=== PATIENT | male | born 1995 | race Caucasian/White ===

== ENCOUNTER 2017-01-06 00:29 | Emergency (ER) | payer OTHER ==
[~2017-01-06] VITALS: Ht 187.9 cm; Wt 136.1 kg
[~2017-01-06 00:29] MED LIST: AMOXICILLIN500 M2 PO; AMOXICILLIN500 MG PO; ANAPROX DS550 MG PO; CLINDAMYCIN HC300 MG PO; CYCLOBENZAPRINE10 MG PO; LOMOTIL 0.025 M1 TAB PO; MOTRIN400 MG PO; MOTRIN800 MG PO; NAPROSYN500 MG PO; NKHM; NORCO 325 MG-51 TAB PO; PEN-VK500 MG PO; PERIDEX 480 ML480 ML PO; PHENERGAN25 M1 PO; PREDNISONE10 MG PO; PREDNISONE20 M1 PO; ROBITUSSIN AC 10 MG/ PO; ULTRAM50 MG PO; ZANTAC150 MG PO; ZITHROMAX Z PA250 MG PO; ZYRTEC10 MG PO
[2017-01-06 00:36] VITALS: BP 152/96
[2017-01-06] MEDS ORDERED: KETOROLAC10 MG PO (03:35)
[2017-01-06] MEDS ORDERED: AMOXICILLIN500 M2 PO (03:35)
== END 2017-01-06 03:52 | disposition home or self-care (01) ==
LOC: ED 00:29
DX: J02.9 Acute pharyngitis, unspecified (principal); R13.10 Dysphagia, unspecified

== ENCOUNTER 2017-01-10 22:42 | Emergency (ER) | payer OTHER ==
[~2017-01-10] VITALS: Ht 190.5 cm; Wt 137.4 kg
[~2017-01-10 22:42] MED LIST changes: +KETOROLAC10 MG PO
[2017-01-10 22:51] VITALS: BP 164/89
[2017-01-10 23:37] LABS: BASO % 0.3 % (0.0-1.0); EOS # 0.1 10*3/uL (0.0-0.4); HEMATOCRIT 44.9 % (42.0-52.0); HEMOGLOBIN 15.7 g/dl (14.0-18.0); IG # 0.1 10*3/uL (0.0-0.1); LYMPH # 2.8 10*3/uL (1.3-4.4); LYMPH % 29.1 % (27.0-41.0); MEAN CELL VOLUME 86.8 fl (80.0-94.0); MEAN CORPUSCULAR HGB 30.4 pg (27.0-31.0); MEAN PLATELET VOLUME 10.4 fl (9.6-12.3); MONO # 0.8 10*3/uL (0.1-1.0); MONO % 7.8 % (3.0-9.0); NEUT # 5.9 10*3/uL (2.3-7.9); NEUT % 61.3 % (47.0-73.0); PLATELET COUNT AUTOMATED 291 10*3/uL (130-400); RED BLOOD COUNT 5.17 10*6/uL (4.50-5.90); RED CELL DISTRI WIDTH 11.8 % (0-14.5); WHITE BLOOD COUNT 9.6 10*3/uL (4.8-10.8)
[2017-01-10 23:53] LABS: ALBUMIN 4.1 gm/dl (3.1-4.5); ALKALINE PHOSPHATASE 98 U/L (45-117); BILIRUBIN, TOTAL 0.4 mg/dl (0.2-1.0); BUN 7 mg/dl (7-24); CARBON DIOXIDE 21 mmol/L (21-32); CHLORIDE 106 mmol/L (98-107); EST GLOM FILT AFRICAN AMERICAN > 60 ml/min; GLUCOSE 118 mg/dL (65-99); POTASSIUM 3.3 mmol/L (3.5-5.1); SGOT/AST 28 IU/L (3-35); SGPT/ALT 81 U/L (12-78); SODIUM 141 mmol/L (136-145); TOTAL PROTEIN 8.1 gm/dL (6.4-8.2)
[2017-01-11] MEDS ORDERED: PROAIR HFA8.5 GM INH (00:20)
[2017-01-11] MEDS ORDERED: PREDNISONE10 MG PO (00:20)
[2017-01-11 01:35] LABS: LA>2 REFLEX 2 HR DRAW NOW
== END 2017-01-11 01:10 | disposition home or self-care (01) ==
LOC: ED 22:42
PROVIDERS: Nurse Practitioner Family
DX: J40 Bronchitis, not specified as acute or chronic (principal); Z79.899 Other long term (current) drug therapy

== ENCOUNTER 2017-10-14 18:11 | Emergency (ER) | payer OTHER ==
[~2017-10-14] VITALS: Ht 180.3 cm; Wt 139.3 kg
[~2017-10-14 18:11] MED LIST changes: +PROAIR HFA8.5 GM INH
[2017-10-14] MEDS ORDERED: MEDROL DOSEPAK4 MG PO (19:58)
[2017-10-14] MEDS ORDERED: ZITHROMAX250 MG PO (19:58)
[2017-10-14 20:12] VITALS: BP 128/79
== END 2017-10-14 20:13 | disposition home or self-care (01) ==
LOC: ED 18:11
DX: J40 Bronchitis, not specified as acute or chronic (principal); Z79.899 Other long term (current) drug therapy

== ENCOUNTER 2018-08-22 | Emergency (ER) | payer OTHER ==
[~2018-08-22] MED LIST changes: +MEDROL DOSEPAK4 MG PO; +ZITHROMAX250 MG PO
[2018-08-22 00:01] VITALS: BP 144/84
[2018-08-22] MEDS ORDERED: IBU800 MG PO (00:03)
[2018-08-22] MEDS ORDERED: PREDNISONE50 MG PO (00:03)
[2018-08-22] MEDS ORDERED: CYCLOBENZAPRINE10 MG PO (00:03)
== END 2018-08-22 00:11 | disposition home or self-care (01) ==
LOC: ED
DX: M54.42 Lumbago with sciatica, left side (principal)

== ENCOUNTER 2019-09-27 22:32 | Emergency (ER) | payer MEDICAID ==
[~2019-09-27] VITALS: Ht 182.8 cm; Wt 136.1 kg
[~2019-09-27 22:32] MED LIST changes: +IBU800 MG PO; +PREDNISONE50 MG PO
[2019-09-27 23:52] VITALS: BP 144/80
== END 2019-09-28 | disposition home or self-care (01) ==
LOC: ED 22:32
DX: B34.9 Viral infection, unspecified (principal)

== ENCOUNTER 2019-10-07 13:38 | Emergency (ER) | payer MEDICAID ==
[~2019-10-07] VITALS: Wt 136.1 kg
[2019-10-07 13:41] VITALS: BP 133/56
[2019-10-07] MEDS ORDERED: PREDNISONE20 M1 PO (14:06)
[2019-10-07] MEDS ORDERED: AUGMENTIN 875875 MG PO (14:06)
== END 2019-10-07 14:23 | disposition home or self-care (01) ==
LOC: ED 13:38
DX: J02.9 Acute pharyngitis, unspecified (principal); R21 Rash and other nonspecific skin eruption; Z79.899 Other long term (current) drug therapy

== ENCOUNTER 2020-08-09 18:24 | Emergency (ER) | payer OTHER ==
[~2020-08-09] VITALS: Ht 182.8 cm; Wt 135.6 kg
[~2020-08-09 18:24] MED LIST changes: +AUGMENTIN 875875 MG PO
[2020-08-09 18:33] VITALS: BP 143/74
[2020-08-09 19:05] LABS: BASO % 0.2 % (0.0-1.0); EOS # 0.1 10*3/uL (0.0-0.4); EOS % 1.2 % (1.0-4.0); LYMPH # 1.9 10*3/uL (1.3-4.4); LYMPH % 16.7 % (27.0-41.0); MEAN CORPUSCULAR HGB CONC 34.5 g/dl (33.0-37.0); MONO % 8.7 % (3.0-9.0); NEUT # 8.4 10*3/uL (2.3-7.9); NEUT % 72.8 % (47.0-73.0); PLATELET COUNT AUTOMATED 263 10*3/uL (130-400); WHITE BLOOD COUNT 11.5 10*3/uL (4.8-10.8)
[2020-08-09 19:20] LABS: ALBUMIN 4.2 gm/dl (3.1-4.5); ALKALINE PHOSPHATASE 97 U/L (45-117); BUN 11 mg/dl (7-24); CHLORIDE 110 mmol/L (98-107); CREATININE 0.96 mg/dL (0.70-1.30); POTASSIUM 3.5 mmol/L (3.5-5.1); SGOT/AST 44 IU/L (3-35); SGPT/ALT 106 U/L (12-78); SODIUM 140 mmol/L (136-145); TOTAL PROTEIN 8.3 gm/dL (6.4-8.2)
[2020-08-09] MEDS ORDERED: AMOXICILLIN500 M2 PO (20:27)
== END 2020-08-09 20:20 | disposition home or self-care (01) ==
LOC: ED 18:24
PROVIDERS: Nurse Practitioner Family
DX: J32.9 Chronic sinusitis, unspecified (principal); Z20.822 Contact with and (suspected) exposure to COVID-19

== ENCOUNTER 2020-09-19 19:35 | Emergency (ER) | payer OTHER ==
[~2020-09-19] VITALS: Ht 182.8 cm; Wt 135.6 kg
[2020-09-19 19:45] VITALS: BP 135/67
[2020-09-19 20:56] LABS: BASO % 0.2 % (0.0-1.0); EOS % 0.1 % (1.0-4.0); HEMATOCRIT 46.7 % (42.0-52.0); LYMPH # 1.8 10*3/uL (1.3-4.4); LYMPH % 14.5 % (27.0-41.0); MEAN CELL VOLUME 87.6 fl (80.0-94.0); MEAN CORPUSCULAR HGB 30.2 pg (27.0-31.0); MEAN CORPUSCULAR HGB CONC 34.5 g/dl (33.0-37.0); MEAN PLATELET VOLUME 10.9 fl (9.6-12.3); MONO # 0.7 10*3/uL (0.1-1.0); MONO % 5.9 % (3.0-9.0); NEUT # 9.7 10*3/uL (2.3-7.9); PLATELET COUNT AUTOMATED 333 10*3/uL (130-400); RED BLOOD COUNT 5.33 10*6/uL (4.50-5.90); RED CELL DISTRI WIDTH 11.7 % (0-14.5); WHITE BLOOD COUNT 12.3 10*3/uL (4.8-10.8)
[2020-09-19 21:15] LABS: ALKALINE PHOSPHATASE 94 U/L (45-117); BUN 12 mg/dl (7-24); CHLORIDE 107 mmol/L (98-107); CREATININE 0.91 mg/dL (0.70-1.30); LIPASE 61 U/L (73-393); POTASSIUM 3.7 mmol/L (3.5-5.1); SGOT/AST 41 IU/L (3-35); SGPT/ALT 104 U/L (12-78); SODIUM 139 mmol/L (136-145); TOTAL PROTEIN 8.3 gm/dL (6.4-8.2)
[2020-09-19 21:27] LABS: BILIRUBIN Negative (Negative); BLOOD Negative (Negative); CLARITY Clear (Clear); COLOR Yellow (Yellow); GLUCOSE Negative (Negative); KETONE Trace (Negative); LEUKO ESTERASE Negative (Negative); NITRITE Negative (Negative); SPECIFIC GRAVITY >= 1.030 (1.001-1.030)
[2020-09-19 21:41] LABS: EPITHELIAL CELLS 0-2
[2020-09-19 21:42] LABS: BACTERIA TRACE; MUCOUS 1+
== END 2020-09-19 19:50 | disposition home or self-care (01) ==
LOC: ED 19:35
PROVIDERS: Student in an Organized Health Care Education/Training Program
DX: R19.7 Diarrhea, unspecified (principal); K76.0 Fatty (change of) liver, not elsewhere classified; R74.01 Elevation of levels of liver transaminase levels

== ENCOUNTER 2021-03-24 02:12 | Emergency (ER) | payer OTHER ==
[~2021-03-24] VITALS: Ht 182.8 cm; Wt 139.3 kg
[2021-03-24 02:34] VITALS: BP 156/87
[2021-03-24 02:57] LABS: BASO % 0.4 % (0.0-1.0); EOS # 0.1 10*3/uL (0.0-0.4); EOS % 1.5 % (1.0-4.0); HEMATOCRIT 45.1 % (42.0-52.0); LYMPH # 2.7 10*3/uL (1.3-4.4); LYMPH % 34.3 % (27.0-41.0); MEAN CELL VOLUME 89.5 fl (80.0-94.0); MEAN CORPUSCULAR HGB 30.2 pg (27.0-31.0); MEAN CORPUSCULAR HGB CONC 33.7 g/dl (33.0-37.0); MEAN PLATELET VOLUME 11.1 fl (9.6-12.3); MONO # 0.6 10*3/uL (0.1-1.0); NEUT # 4.5 10*3/uL (2.3-7.9); NEUT % 56.5 % (47.0-73.0); PLATELET COUNT AUTOMATED 290 10*3/uL (130-400); RED BLOOD COUNT 5.04 10*6/uL (4.50-5.90); RED CELL DISTRI WIDTH 11.9 % (0-14.5)
[2021-03-24 03:15] LABS: ALBUMIN 4.1 gm/dl (3.1-4.5); ALKALINE PHOSPHATASE 90 U/L (45-117); BUN 12 mg/dl (7-24); CHLORIDE 109 mmol/L (98-107); CREATININE 0.91 mg/dL (0.70-1.30); POTASSIUM 4.3 mmol/L (3.5-5.1); SGOT/AST 29 IU/L (3-35); SGPT/ALT 91 U/L (12-78); SODIUM 140 mmol/L (136-145)
== END 2021-03-24 03:52 | disposition home or self-care (01) ==
LOC: ED 02:12
PROVIDERS: Internal Medicine
DX: B34.9 Viral infection, unspecified (principal); Z20.822 Contact with and (suspected) exposure to COVID-19

== ENCOUNTER 2021-05-12 19:36 | Emergency (ER) | payer OTHER ==
[2021-05-12 19:49] VITALS: BP 139/84
[2021-05-12] MEDS ORDERED: MOTRIN IB200 M1 PO (19:49)
[2021-05-12] MEDS ORDERED: SEPTDS PO (20:03)
== END 2021-05-12 20:17 | disposition home or self-care (01) ==
LOC: ED 19:36
DX: L05.01 Pilonidal cyst with abscess (principal)

== ENCOUNTER 2021-07-03 17:52 | Emergency (ER) | payer OTHER ==
[~2021-07-03] VITALS: Ht 182.8 cm; Wt 140.6 kg
[~2021-07-03 17:52] MED LIST changes: +MOTRIN IB200 M1 PO; +SEPTDS PO
[2021-07-03 18:08] VITALS: BP 139/95
[2021-07-03] MEDS ORDERED: IBUPROFEN600 MG PO (20:59)
[2021-07-03] MEDS ORDERED: AUGMENTIN 875875 MG PO (20:59)
== END 2021-07-03 21:00 | disposition home or self-care (01) ==
LOC: ED 17:52
DX: J02.9 Acute pharyngitis, unspecified (principal); Z20.822 Contact with and (suspected) exposure to COVID-19

== ENCOUNTER 2022-09-23 22:19 | Emergency (ER) | payer OTHER ==
[~2022-09-23] VITALS: Ht 180.3 cm; Wt 128.8 kg
[~2022-09-23 22:19] MED LIST changes: +IBUPROFEN600 MG PO
[2022-09-23 23:17] VITALS: BP 141/76
[2022-09-24] MEDS ORDERED: PROVENTIL HFA6.7 GM INH (03:54)
== END 2022-09-24 03:07 | disposition home or self-care (01) ==
LOC: ED 22:19
DX: J20.9 Acute bronchitis, unspecified (principal)

== ENCOUNTER 2023-04-09 14:07 | Emergency (ER) | payer OTHER ==
[~2023-04-09] VITALS: Ht 182.8 cm; Wt 122.5 kg
[~2023-04-09 14:07] MED LIST changes: +PROVENTIL HFA6.7 GM INH
[2023-04-09 14:20] VITALS: BP 134/86
== END 2023-04-09 16:46 | disposition home or self-care (01) ==
LOC: ED 14:07
DX: J06.9 Acute upper respiratory infection, unspecified (principal); Z20.822 Contact with and (suspected) exposure to COVID-19; Z79.899 Other long term (current) drug therapy

== ENCOUNTER 2023-09-15 19:42 | Emergency (ER) | payer OTHER ==
[~2023-09-15] VITALS: Ht 182.8 cm; Wt 129.3 kg
[2023-09-15 19:55] VITALS: BP 151/94
[2023-09-15 20:15] LABS: BASO % 0.5 % (0.0-1.0); EOS # 0.1 10*3/uL (0.0-0.4); EOS % 0.8 % (1.0-4.0); HEMATOCRIT 46.6 % (42.0-52.0); LYMPH # 2.8 10*3/uL (1.3-4.4); LYMPH % 38.3 % (27.0-41.0); MEAN CORPUSCULAR HGB 30.3 pg (27.0-31.0); MEAN CORPUSCULAR HGB CONC 33.7 g/dl (33.0-37.0); MEAN PLATELET VOLUME 10.5 fl (9.6-12.3); MONO # 0.5 10*3/uL (0.1-1.0); MONO % 6.1 % (3.0-9.0); NEUT # 3.9 10*3/uL (2.3-7.9); NEUT % 52.8 % (47.0-73.0); PLATELET COUNT AUTOMATED 307 10*3/uL (130-400); RED BLOOD COUNT 5.18 10*6/uL (4.50-5.90); RED CELL DISTRI WIDTH 12.2 % (0-14.5); WHITE BLOOD COUNT 7.4 10*3/uL (4.8-10.8)
[2023-09-15 20:29] LABS: ACT PARTIAL THROMBO TIME 29.3 SECONDS (20.0-32.1)
[2023-09-15 20:34] LABS: ALKALINE PHOSPHATASE 73 U/L (46-116); BUN 9 mg/dl (9-23); CHLORIDE 105 mmol/L (98-107); CPK 124 U/L (34-171); LIPASE 34 U/L (12-53); POTASSIUM 3.5 mmol/L (3.4-5.1); SGPT/ALT 46 U/L (5-49); TOTAL PROTEIN 7.6 gm/dL (6.0-8.0)
[2023-09-15 20:53] LABS: BILIRUBIN Negative (Negative); BLOOD Trace-Lysed (Negative); CLARITY Clear (Clear); COLOR Yellow (Yellow); GLUCOSE Negative (Negative); KETONE Negative (Negative); LEUKO ESTERASE Negative (Negative); NITRITE Negative (Negative); PH 5.5 (4.5-8.0); SPECIFIC GRAVITY 1.025 (1.001-1.030)
[2023-09-15 21:04] LABS: MUCOUS 1+
== END 2023-09-15 23:34 | disposition home or self-care (01) ==
LOC: ED 19:42
PROVIDERS: Nurse Practitioner Family
DX: R16.1 Splenomegaly, not elsewhere classified (principal); R31.9 Hematuria, unspecified; F41.9 Anxiety disorder, unspecified

== ENCOUNTER 2023-11-14 20:07 | Emergency (ER) | payer OTHER ==
[~2023-11-14] VITALS: Ht 182.8 cm; Wt 108.9 kg
[2023-11-14 20:37] VITALS: BP 134/87
[2023-11-14] MEDS ORDERED: ZITHROMAX250 MG PO (22:40)
[2023-11-14] MEDS ORDERED: MUCINEX ER600 MG PO (22:40)
[2023-11-14] MEDS ORDERED: GUAIFENESIN 600 MG TAB ER PO ONE (22:45)
== END 2023-11-14 22:48 | disposition home or self-care (01) ==
LOC: ED 20:07
DX: J06.9 Acute upper respiratory infection, unspecified (principal); Z20.822 Contact with and (suspected) exposure to COVID-19; R05.9 Cough, unspecified; H66.92 Otitis media, unspecified, left ear; F41.9 Anxiety disorder, unspecified

== ENCOUNTER 2024-06-25 18:01 | Emergency (ER) | payer OTHER ==
[~2024-06-25 18:01] MED LIST changes: +MUCINEX ER600 MG PO
[2024-06-25 18:30] VITALS: BP 130/90
[2024-06-25 19:41] LABS: BASO % 0.2 % (0.0-1.0); EOS % 0.2 % (1.0-4.0); HEMATOCRIT 48.2 % (42.0-52.0); MEAN CELL VOLUME 87.3 fl (80.0-94.0); MEAN CORPUSCULAR HGB 29.7 pg (27.0-31.0); MEAN PLATELET VOLUME 10.9 fl (9.6-12.3); MONO # 0.5 10*3/uL (0.1-1.0); MONO % 3.4 % (3.0-9.0); NEUT # 11.5 10*3/uL (2.3-7.9); NEUT % 84.1 % (47.0-73.0); PLATELET COUNT AUTOMATED 297 10*3/uL (130-400); RED BLOOD COUNT 5.52 10*6/uL (4.50-5.90); RED CELL DISTRI WIDTH 11.6 % (0-14.5); WHITE BLOOD COUNT 13.7 10*3/uL (4.8-10.8)
[2024-06-25 20:06] LABS: ALKALINE PHOSPHATASE 93 U/L (46-116); BUN 11 mg/dl (9-23); CHLORIDE 107 mmol/L (98-107); LIPASE 33 U/L (12-53); POTASSIUM 3.6 mmol/L (3.4-5.1); SGPT/ALT 48 U/L (5-49); TOTAL PROTEIN 8.7 gm/dL (6.0-8.0)
[2024-06-25] MEDS ORDERED: VISTARIL25 MG PO (21:27)
== END 2024-06-25 21:35 | disposition home or self-care (01) ==
LOC: ED 18:01
PROVIDERS: Internal Medicine
DX: F41.9 Anxiety disorder, unspecified (principal); M79.602 Pain in left arm; R07.89 Other chest pain

== ENCOUNTER 2025-05-30 16:52 | Emergency (ER) | payer MEDICAID ==
[~2025-05-30] VITALS: Ht 180.3 cm; Wt 127.0 kg
[~2025-05-30 16:52] MED LIST changes: +VISTARIL25 MG PO
[2025-05-30 17:02] VITALS: BP 140/75
[2025-05-30 17:43] LABS: BASO # 0.0 10*3/uL (0.0-0.1); BASO % 0.4 % (0.0-1.0); EOS # 0.0 10*3/uL (0.0-0.4); EOS % 0.6 % (1.0-4.0); MEAN CELL VOLUME 89.9 fl (80.0-94.0); MEAN CORPUSCULAR HGB 30.2 pg (27.0-31.0); MEAN PLATELET VOLUME 11.1 fl (9.6-12.3); MONO # 0.4 10*3/uL (0.1-1.0); MONO % 5.6 % (3.0-9.0); NEUT # 4.5 10*3/uL (2.3-7.9); NEUT % 66.3 % (47.0-73.0); NUCLEATED RED BLOOD CELL 0.0 % (0.0-0.0); NUCLEATED RED BLOOD CELL 0.0 10*3/uL (0.0-0.0); PLATELET COUNT AUTOMATED 284 10*3/uL (130-400); RED CELL DISTRI WIDTH 11.7 % (0-14.5)
[2025-05-30 18:10] LABS: BUN 10 mg/dl (9-23); SGPT/ALT 68 U/L (5-49)
[2025-05-30] MEDS ORDERED: IBUPROFEN400 MG PO (18:42)
== END 2025-05-30 18:46 | disposition home or self-care (01) ==
LOC: ED 16:52
PROVIDERS: Emergency Medicine
DX: S16.1XXA Strain of muscle, fascia and tendon at neck level, initial encounter (principal); S13.4XXA Sprain of ligaments of cervical spine, initial encounter; X58.XXXA Exposure to other specified factors, initial encounter; Y93.89 Activity, other specified; Y92.89 Other specified places as the place of occurrence of the external cause; Y99.8 Other external cause status